=== PATIENT | female | born 1960 ===

== ENCOUNTER 2021-04-04 11:45 | Inpatient (IN) | payer OTHER ==
[~2021-04-04] VITALS: Ht 154.9 cm; Wt 62.1 kg
[~2021-04-04 11:45] MED LIST: AMBIEN5 MG PO; INTESTINEX1 CA1 PO; NORVASC5 MG PO; OXYC1TAB9 PO; PROTONIX40 MG PO; SYNTHROID50 MCG PO; WELLBUTRIN XL150 M1 PO
[2021-04-04] MEDS ORDERED: ZANAFLEX4 MG PO (13:52)
[2021-04-04] MEDS ORDERED: GABAPENT PO (13:52)
[2021-04-07] MEDS ORDERED: AMOX-CLAV 875-1 EACH PO (07:34)
[2021-04-07] MEDS ORDERED: COLACE100 MG PO (07:34)
[2021-04-07] MEDS ORDERED: MEDROLPACK PO (07:34)
[2021-04-07] MEDS ORDERED: PERCOCET 5-3251 EACH PO (07:34)
== END 2021-04-08 13:45 | disposition home or self-care (01) | DRG 473 ==
LOC: O/R 04-07 04:50 → PED 04-07 04:50 → SURH 04-07 07:00 → PED 04-07 11:28 → SURH 04-07 11:45 → PED 04-07 16:03
PROVIDERS: ADMIT Orthopaedic Surgery Orthopaedic Surgery of the Spine; ATTEND Orthopaedic Surgery Orthopaedic Surgery of the Spine
PROC: 0RG2070 Fusion of 2 or more Cervical Vertebral Joints with Autologous Tissue Substitute, Anterior Approach, Anterior Column, Open Approach (ICD-10-PCS; 2021-04-07)
PROC: 0RG20K0 Fusion of 2 or more Cervical Vertebral Joints with Nonautologous Tissue Substitute, Anterior Approach, Anterior Column, Open Approach (ICD-10-PCS; 2021-04-07)
PROC: 07DS3ZZ Extraction of Vertebral Bone Marrow, Percutaneous Approach (ICD-10-PCS; 2021-04-07)
PROC: 0RG20A0 Fusion of 2 or more Cervical Vertebral Joints with Interbody Fusion Device, Anterior Approach, Anterior Column, Open Approach (ICD-10-PCS; principal; 2021-04-07 07:00)
DX: M50.021 Cervical disc disorder at C4-C5 level with myelopathy (principal); M50.022 Cervical disc disorder at C5-C6 level with myelopathy; M50.023 Cervical disc disorder at C6-C7 level with myelopathy; Z20.822 Contact with and (suspected) exposure to COVID-19